=== PATIENT | female | born 1960 | race Caucasian/White ===

== ENCOUNTER 2018-12-12 09:31 | Day surgery (SDC) | payer BC ==
[~2018-12-12] VITALS: Ht 172.7 cm; Wt 80.7 kg
[~2018-12-12 09:31] MED LIST: AMLO5 PO; Daily Multiple1 EACH PO; Flonase 0.05% N16 GM; GLUCOSAMINE HC500 MG PO; IBUP800 PO; MINIVELLE1 EAC2 TD; Naprelan375 MG PO; OMEP20ER PO; PROG100 PO; SYNTHROID150 MC1 PO; TRAM50 PO; TRAZ50 PO
--- NOTE | 2018-12-12 10:15 | NUR ---
12/12/18 [email or web address] Elvin Babin CALL LIGHT WITHIN REACH. FAMILY AT BEDSIDE
== END 2018-12-12 11:54 | disposition home or self-care (01) ==
LOC: ORSCSDS 09:31
PROVIDERS: Internal Medicine Gastroenterology
PROC: 0DJD8ZZ Inspection of Lower Intestinal Tract, Via Natural or Artificial Opening Endoscopic (ICD-10-PCS; principal; 2018-12-12 10:45)
PROC: 0DB58ZX Excision of Esophagus, Via Natural or Artificial Opening Endoscopic, Diagnostic (ICD-10-PCS; principal; 2018-12-12 10:45)
PROC: 0D758ZZ Dilation of Esophagus, Via Natural or Artificial Opening Endoscopic (ICD-10-PCS; principal; 2018-12-12 10:45)
DX: R13.14 Dysphagia, pharyngoesophageal phase (principal); K22.2 Esophageal obstruction; K29.60 Other gastritis without bleeding; K44.9 Diaphragmatic hernia without obstruction or gangrene; K21.9 Gastro-esophageal reflux disease without esophagitis; K57.30 Diverticulosis of large intestine without perforation or abscess without bleeding; R19.4 Change in bowel habit; I10 Essential (primary) hypertension; E03.9 Hypothyroidism, unspecified; Z79.899 Other long term (current) drug therapy; Z87.891 Personal history of nicotine dependence
CPT/HCPCS: 87081; 88305; J2704; J7120

== ENCOUNTER → 2018-12-20 | Outpatient (CLI) | payer BC | LOC: LAB 18:33 → LAB SHORT 18:33 | DX: B00.9 Herpesviral infection, unspecified (principal); B02.9 Zoster without complications | CPT/HCPCS: 87070; 87205; 87529; 87798 ==

== ENCOUNTER 2021-08-04 08:35 | Day surgery (SDC) | payer BC ==
[~2021-08-04] VITALS: Ht 172.7 cm; Wt 79.3 kg
[~2021-08-04 08:35] MED LIST changes: +Avapro300 MG PO; +EC-NAPROXEN375 MG PO; +LEVOTHYROXINE PO; +ROSU5 PO
[2021-08-04] MEDS ORDERED: Aspir 8181 MG (09:30)
--- NOTE | 2021-08-04 11:11 | NUR ---
08/04/21 Catherine Dill PT. VERBALIZES HAVING A "TINY SORE THROAT." PT. INSTRUCTED SHE COULD HAVE A SORE THROAT FOR A DAY OR SO SINCE DR. WALSH DID DILITATION. PT. ALSO VERBALIZES HAVING A "LITTLE RAMOS." PT. CAME IN WITH A RAMOS.
== END 2021-08-04 10:52 | disposition home or self-care (01) ==
LOC: ORSCSDS 08:35
PROVIDERS: Internal Medicine Gastroenterology
PROC: 0DB68ZX Excision of Stomach, Via Natural or Artificial Opening Endoscopic, Diagnostic (ICD-10-PCS; principal; 2021-08-04 10:00)
PROC: 0D757ZZ Dilation of Esophagus, Via Natural or Artificial Opening (ICD-10-PCS; principal; 2021-08-04 10:00)
PROC: 0DB58ZX Excision of Esophagus, Via Natural or Artificial Opening Endoscopic, Diagnostic (ICD-10-PCS; principal; 2021-08-04 10:00)
DX: R13.14 Dysphagia, pharyngoesophageal phase (principal); K29.70 Gastritis, unspecified, without bleeding; K22.2 Esophageal obstruction; K29.60 Other gastritis without bleeding; I10 Essential (primary) hypertension; K21.9 Gastro-esophageal reflux disease without esophagitis; Z87.891 Personal history of nicotine dependence; Z79.899 Other long term (current) drug therapy
CPT/HCPCS: 88305; 88341; 88342; J2704; J7120